=== PATIENT | male | born 1990 | race American Indian/Alaskan Native ===

== ENCOUNTER 2020-06-03 06:30 | Emergency (ER) | payer BC ==
[2020-06-03 06:56] LABS: Bilirubin,Urine NEG (Negative); Blood,Urine NEG (Negative); Color,Urine Yellow (Yellow); Mucus,Urine FEW /HPF; Urobilinogen,Urine < 2.0 mg/dL (<2.0)
[2020-06-03 07:06] LABS: Basophils % (Auto) 0.4 % (0.0-1.8); Eosinophils % (Auto) 0.3 % (0.0-4.3); Hematocrit 38.3 % (35.5-45.6); Hemoglobin 12.7 gm/dl (11.8-15.2); Lymphocytes # (Auto) 1.2 K/mm3 (1.2-5.4); Lymphocytes % (Auto) 21.1 % (13.4-35.0); Mean Corpuscular HGB Conc 33 % (32-34); Mean Corpuscular Volume 84 fl (84-94); Monocytes # (Auto) 0.7 K/mm3 (0.0-0.8); Monocytes % (Auto) 11.7 % (0.0-7.3); Platelet Count 177 K/mm3 (140-440); Red Blood Count 4.59 M/mm3 (3.65-5.03)
[2020-06-03] MEDS ORDERED: DICYCLOMINE 20 MG/2 ML INJ IM ONE (07:18)
[2020-06-03] MEDS ORDERED: ONDANSETRON 4 MG ODT TAB PO ONE (07:18)
--- NOTE | 2020-06-03 07:19 | Emergency Department Report ---
ED N/V/D HPI - General Chief complaint: Nausea/Vomiting/Diarrhea Stated complaint: ABD PAIN/EMESIS Time Seen by Provider: 06/03/20 07:08 Source: patient Mode of arrival: Ambulatory Limitations: No Limitations - History of Present Illness Initial comments: 29-year-old male with past medical history of asthma presents to the ER with complaints of vomiting, diarrhea and abdominal cramps. Patient states that his symptoms started yesterday. He states that it started couple hours after eating 1/4 of a harsh brown roll from [employer]. He states that he did not taste or smell bad. He was only wanting to eat well the house but he also states that his family members has had similar symptoms for the past couple days. He states that he thinks he may have vomited ten about ten times and he has had about three episodes of diarrhea. He denies any hematemesis, melena or hematochezia. He denies any mucus in his stool. He denies any fever or chills. He denies any recent travel, or antibiotic use. He reports no other symptoms at this time. Patient states that since arriving to the ER he has not had any more vomiting or diarrhea but he still continues to have the abdominal cramping. MD complaint: nausea, vomiting, diarrhea, abdominal pain -: Sudden (yesterday ) - Related Data Previous Rx's Medication Instructions Recorded Last Taken Type Dicyclomine [Bentyl] 10 mg PO QID PRN #30 capsule 06/03/20 Unknown Rx Ondansetron [Zofran Odt] 4 mg PO Q8HR PRN #15 tab.rapdis 06/03/20 Unknown Rx Allergies Allergy/AdvReac Type Severity Reaction Status Date / Time No Known Allergies Allergy Verified 06/03/20 06:55 ED Review of Systems ROS: Stated complaint: ABD PAIN/EMESIS Other details as noted in HPI Comment: All other systems reviewed and negative Constitutional: denies: chills, fever Respiratory: denies: cough, shortness of breath, wheezing Cardiovascular: denies: chest pain, palpitations Gastrointestinal: abdominal pain, nausea, vomiting, diarrhea. denies: constipation, hematemesis, melena, hematochezia Genitourinary: denies: urgency, dysuria, frequency, hematuria, discharge Musculoskeletal: denies: back pain, joint swelling, arthralgia Skin: denies: rash, lesions Neurological: denies: headache, weakness, paresthesias Psychiatric: denies: anxiety, depression Hematological/Lymphatic: denies: easy bleeding, easy bruising ED Past Medical Hx - Past Medical History Previous Medical History?: Yes Hx Asthma: Yes (childhood) Additional medical history: Obesity - Surgical History Past Surgical History?: Yes Additional Surgical History: L foot surgery - Social History Smoking Status: Never Smoker Substance Use Type: None - Medications Home Medications: Home Medications Medication Instructions Recorded Confirmed Last Taken Type Dicyclomine [Bentyl] 10 mg PO QID PRN #30 capsule 06/03/20 Unknown Rx Ondansetron [Zofran Odt] 4 mg PO Q8HR PRN #15 tab.rapdis 06/03/20 Unknown Rx ED Physical Exam - General Limitations: No Limitations General appearance: alert, in no apparent distress, obese - Head Head exam: Present: atraumatic, normocephalic, normal inspection - Neck Neck exam: Present: normal inspection, full ROM - Respiratory Respiratory exam: Present: normal lung sounds bilaterally. Absent: respiratory distress - Cardiovascular Cardiovascular Exam: Present: regular rate, normal rhythm, normal heart sounds - GI/Abdominal GI/Abdominal exam: Present: soft. Absent: distended, tenderness, guarding - Neurological Exam Neurological exam: Present: alert, oriented X3, CN II-XII intact - Psychiatric Psychiatric exam: Present: normal affect, normal mood - Skin Skin exam: Present: intact ED Course Vital Signs 06/03/20 06/03/20 06/03/20 06:35 06:55 07:47 Temperature 99.1 F Pulse Rate 116 H 105 H Respiratory 18 17 18 Rate Blood Pressure 142/88 Blood Pressure 146/90 130/78 [Right] O2 Sat by Pulse 96 98 98 Oximetry ED Medical Decision Making - Lab Data Result diagrams: 06/03/20 06:58 06/03/20 06:58 - Medical Decision Making 29-year-old male with past medical history of asthma presents to the ER with complaints of vomiting, diarrhea and abdominal cramps. Patient states that his symptoms started yesterday. He states that it started couple hours after eating 1/4 of a harsh brown roll from [employer]. He states that he did not taste or smell bad. He was only wanting to eat well the house but he also states that his family members has had similar symptoms for the past couple days. He states that he thinks he may have vomited ten about ten times and he has had about three episodes of diarrhea. He denies any hematemesis, melena or hematochezia. He denies any mucus in his stool. He denies any fever or chills. He denies any recent travel, or antibiotic use. He reports no other symptoms at this time. Patient states that since arriving to the ER he has not had any more vomiting or diarrhea but he still continues to have the abdominal cramping. 0756: Labs reviewed --CBC, CMP, urinalysis and lipase unremarkable. Patient was able to tolerate p.o. fluids. He has a soft nontender abdomen. His heart rate has improved during stay. Remaining vitals are stable. Patient is not toxic, not ill-appearing, he is not in any acute distress, he is not severely dehydrated, and is neurologically intact. Suspect that his symptoms at this time is related to viral gastroenteritis. No indication for additional work-up, admission or emergent consult at this time. Discussed suspected diagnosis with patient. Discussed treatment plan with patient. Patient expressed unde rstanding of instructions and agree with plan. Patient was stable at time of discharge. Critical care attestation.: If time is entered above; I have spent that time in minutes in the direct care of this critically ill patient, excluding procedure time. ED Disposition Clinical Impression: Gastroenteritis Disposition: DC-01 TO HOME OR SELFCARE Is pt being admited?: No Does the pt Need Aspirin: No Condition: Stable Instructions: Viral Gastroenteritis, Adult, [id number] Additional Instructions: Take the Zofran and the Bentyl as prescribed. Recommend doing a bland diet for the rest of the day. I encouraged that he drinks lots of fluids. Follow-up with your primary care doctor next week. Return to the ER if your symptoms changes or worsens in any way peer Prescriptions: Dicyclomine [Bentyl] 10 mg PO QID PRN #30 capsule PRN Reason: Abdominal cramps Ondansetron [Zofran Odt] 4 mg PO Q8HR PRN #15 tab.rapdis PRN Reason: Nausea Referrals: HANNAH TADEO MD [Staff Physician] - 3-5 Days Forms: Work/School Release Form(ED) Time of Disposition: 07:51
[2020-06-03 07:30] LABS: Alanine Aminotransferase 36 units/L (7-56); Albumin 4.2 g/dL (3.9-5); BUN/Creatinine Ratio 14; Blood Urea Nitrogen 15 mg/dL (9-20); Calcium 8.8 mg/dL (8.4-10.2); Hemolysis Index 2
[2020-06-03 07:50] VITALS: BP 130/78
== END 2020-06-03 08:04 | disposition home or self-care (01) ==
LOC: ED 06:30
DX: K52.9 Noninfective gastroenteritis and colitis, unspecified (principal); J45.909 Unspecified asthma, uncomplicated; Z98.890 Other specified postprocedural states; Z79.899 Other long term (current) drug therapy
CPT/HCPCS: 36415; 80053; 81001; 83690; 85025; 96372; 99283; J0500; Q0162

== ENCOUNTER 2020-11-13 08:00 | Emergency (ER) | payer BC | END 2020-11-13 17:44 | disposition left against medical advice (07) | LOC: ED 08:00 | DX: K62.89 Other specified diseases of anus and rectum (principal); Z53.21 Procedure and treatment not carried out due to patient leaving prior to being seen by health care provider ==